=== PATIENT | female | born 1975 | race Caucasian/White ===

== ENCOUNTER 2022-03-02 17:51 | Inpatient (IN) ==
[2022-03-02 19:29] LABS: Basophils # 0.1 K/mcL (0.0-0.2); Basophils % 0.6 %; Eosinophils # 0.1 K/mcL (0.0-0.6); Eosinophils % 0.4 %; Hematocrit 28.7 % (35.3-44.9); Hemoglobin 8.9 g/dL (11.5-15.4); Immature Granulocytes % 1.7 % (0-4); Lymphocytes # 1.9 K/mcL (0.6-4.6); Mean Corpuscular Hemoglobin 28.3 pg (28.0-33.3); Mean Corpuscular Volume 91.1 fL (83.0-100.0); Mean Platelet Volume 10.1 fL (9.4-12.4); Monocytes # 0.6 K/mcL (0.0-1.3); Monocytes % 4.7 %; Neutrophils # 9.7 K/mcL (1.6-8.9); Nucleated Red Blood Cells 0.2 /100 WBC (0); Platelet Count 467 K/mcL (140-400); Red Blood Count 3.15 M/mcL (3.82-4.97); Red Cell Distribution Width 16.4 % (11.5-14.5); Segmented Neutrophils % 77.6 %; White Blood Count 12.4 K/mcL (4.3-11.1)
[2022-03-02 19:36] LABS: INR 1.2; Prothrombin Time 13.7 Seconds (9.4-12.1)
[2022-03-02 19:38] LABS: Activated Partial Thrombo Time 26.5 Seconds (26.0-36.0)
[2022-03-02 19:45] LABS: BUN/Creatinine Ratio 32 (6-26); Blood Urea Nitrogen 24 mg/dL (6-20); Calcium 8.1 mg/dL (8.6-10.3); Carbon Dioxide 28 mEq/L (23-29); Chloride 97 mEq/L (98-107); Glucose 200 mg/dL (70-105); Osmolality,Calculated 290 (280-300); Potassium 5.1 mEq/L (3.5-5.1); Sodium 135 mEq/L (136-145); eGFR For African Americans > 60 (> 60); eGFR For Non-African Americans > 60 (> 60)
[2022-03-02] MEDS ORDERED: SODIUM CHLORIDE/NAHCO3/KCL/PEG 4,000 ML SOLN.RECON PO ONE (22:00)
[2022-03-02] MEDS ORDERED: Naloxone 0.4 MG/ML INJ IVP PRN (22:10)
[2022-03-02] MEDS ORDERED: Melatonin 3 MG TABLET PO PRN (22:10)
[2022-03-02] MEDS ORDERED: Ondansetron ODT 4 MG TAB.RAPDIS SL PRN (22:10)
[2022-03-02] MEDS ORDERED: Acetaminophen 325 MG TABLET PO PRN (22:10)
[2022-03-02] MEDS ORDERED: *HR* HYDROcodone/Acet 5/325 mg TABLET PO PRN (22:10)
[2022-03-02] MEDS ORDERED: D5% in Water 1,000 ML IVC PRN (22:13)
[2022-03-02] MEDS ORDERED: *HR* Dextrose 50 % in Water (Syg) 50 ML SYRINGE IVP PRN (22:13)
[2022-03-02] MEDS ORDERED: Dextrose Gel 15 GM/37.5 ML TUBE PO PRN ×2 (22:13)
[2022-03-03] MEDS: Insulin LISPRO 300 UNITS/3 ML VIAL SUBQ SCH ×5 (00:10→20:04)
[2022-03-03 01:38] LABS: Basophils # 0.1 K/mcL (0.0-0.2); Basophils % 0.6 %; Eosinophils % 0.3 %; Hematocrit 27.5 % (35.3-44.9); Hemoglobin 8.3 g/dL (11.5-15.4); Immature Granulocytes % 1.7 % (0-4); Lymphocytes # 1.8 K/mcL (0.6-4.6); Lymphocytes % 11.4 %; Mean Corpuscular HGB Conc 30.2 g/dL (31.6-35.5); Mean Corpuscular Hemoglobin 27.7 pg (28.0-33.3); Mean Corpuscular Volume 91.7 fL (83.0-100.0); Mean Platelet Volume 9.6 fL (9.4-12.4); Monocytes # 0.9 K/mcL (0.0-1.3); Monocytes % 5.5 %; Neutrophils # 12.6 K/mcL (1.6-8.9); Platelet Count 448 K/mcL (140-400); Red Cell Distribution Width 16.5 % (11.5-14.5); Segmented Neutrophils % 80.5 %; White Blood Count 15.6 K/mcL (4.3-11.1)
[2022-03-03 01:57] LABS: BUN/Creatinine Ratio 32 (6-26); Blood Urea Nitrogen 28 mg/dL (6-20); Calcium 8.1 mg/dL (8.6-10.3); Carbon Dioxide 28 mEq/L (23-29); Chloride 96 mEq/L (98-107); Glucose 219 mg/dL (70-105); Magnesium 1.5 mg/dL (1.6-2.6); Osmolality,Calculated 290 (280-300); Phosphorous 4.4 mg/dL (2.7-4.5); Potassium 4.7 mEq/L (3.5-5.1); Sodium 134 mEq/L (136-145); eGFR For African Americans > 60 (> 60); eGFR For Non-African Americans > 60 (> 60)
[2022-03-03] MEDS: *HR* OxyCODONE Immed Rel 5 MG TABLET PO PRN ×2 (02:19→20:00)
[2022-03-03 06:23] LABS: Hematocrit 27.8 % (35.3-44.9); Hemoglobin 8.5 g/dL (11.5-15.4)
[2022-03-03] MEDS: Pantoprazole 40 MG VIAL IVP SCH ×2 (08:41→17:14)
[2022-03-03 11:27] LABS: Estimated Average Glucose 203 mg/dl; Hemoglobin A1C 8.7 %
[2022-03-03] MEDS: Piperacillin/Tazobactam 3.375 GM in 0.9 % Sodium Chloride Mini Bag 100 ML IVPB SCH ×2 (11:30→19:53)
[2022-03-03] MEDS: Vancomycin 2,000 MG/520 ML IV.SOLN IVPB SCH (13:09)
[2022-03-03 16:07] LABS: Amphetamine Screen,Urine Negative ng/mL (Cutoff=1000); Barbiturate Screen,Urine Negative ng/mL (Cutoff=200); Benzodiazepines Screen,Urine Negative ng/mL (Cutoff=200); Cannabinoid Screen,Urine Negative ng/mL (Cutoff = 50); Cocaine Screen,Urine Negative ng/mL (Cutoff= 300); Opiate Screen,Urine Negative ng/mL (Cutoff=300); Phencyclidine Screen,Urine Negative ng/mL (Cutoff=25)
[2022-03-03 16:20] LABS: Bacteria,Urine Few per hpf (None-Few); Bilirubin,Urine Negative (Negative); Blood,Urine Large (Negative); Clarity,Urine Ex.Turbid (Clear); Color,Urine Orange (Yellow); Glucose,Urine (UA) Normal (Normal); Hyaline Casts,Urine Many per lpf (None Seen); Ketones,Urine Negative (Negative); Leukocyte Esterase,Urine Large (Negative); Mucus,Urine Many per lpf (None-Few); Nitrite,Urine Negative (Negative); Protein,Urine 200 mg/dL (Neg-Trace); RBC,Urine 50-100 per hpf (0-3); Specific Gravity,Urine 1.027 (1.010-1.025); Squamous Epithelial Cell,Urine Moderate per hpf (None-Few); WBC,Urine TNTC per hpf (0-3)
[2022-03-04] MEDS: Vancomycin 2,000 MG/520 ML IV.SOLN IVPB SCH (00:40)
[2022-03-04 03:02] LABS: Basophils # 0.1 K/mcL (0.0-0.2); Basophils % 0.7 %; Eosinophils # 0.1 K/mcL (0.0-0.6); Eosinophils % 1.2 %; Hematocrit 24.8 % (35.3-44.9); Hemoglobin 7.6 g/dL (11.5-15.4); Immature Granulocytes % 2.5 % (0-4); Lymphocytes # 1.9 K/mcL (0.6-4.6); Lymphocytes % 17.6 %; Mean Corpuscular HGB Conc 30.6 g/dL (31.6-35.5); Mean Corpuscular Hemoglobin 27.8 pg (28.0-33.3); Mean Corpuscular Volume 90.8 fL (83.0-100.0); Mean Platelet Volume 9.8 fL (9.4-12.4); Monocytes # 0.7 K/mcL (0.0-1.3); Monocytes % 6.4 %; Neutrophils # 7.7 K/mcL (1.6-8.9); Platelet Count 422 K/mcL (140-400); Red Blood Count 2.73 M/mcL (3.82-4.97); Red Cell Distribution Width 16.8 % (11.5-14.5); Segmented Neutrophils % 71.6 %; White Blood Count 10.8 K/mcL (4.3-11.1)
[2022-03-04 03:21] LABS: BUN/Creatinine Ratio 33 (6-26); Blood Urea Nitrogen 33 mg/dL (6-20); Carbon Dioxide 30 mEq/L (23-29); Chloride 95 mEq/L (98-107); Glucose 185 mg/dL (70-105); Osmolality,Calculated 290 (280-300); Potassium 4.7 mEq/L (3.5-5.1); Sodium 134 mEq/L (136-145); eGFR For African Americans > 60 (> 60); eGFR For Non-African Americans 60 (> 60)
[2022-03-04 03:24] LABS: Bacteria,Urine Few per hpf (None-Few); Bilirubin,Urine Small (Negative); Blood,Urine Large (Negative); Clarity,Urine Turbid (Clear); Color,Urine Yellow (Yellow); Glucose,Urine (UA) Normal (Normal); Ketones,Urine Trace mg/dL (Negative); Leukocyte Esterase,Urine Large (Negative); Mucus,Urine Few per lpf (None-Few); Nitrite,Urine Negative (Negative); PH,Urine 5.5 pH Units (5.0-8.0); Protein,Urine 70 mg/dL (Neg-Trace); RBC,Urine 30-50 per hpf (0-3); Specific Gravity,Urine > 1.030 (1.010-1.025); Squamous Epithelial Cell,Urine Few per hpf (None-Few); WBC,Urine TNTC per hpf (0-3)
[2022-03-04] MEDS: Piperacillin/Tazobactam 3.375 GM in 0.9 % Sodium Chloride Mini Bag 100 ML IVPB SCH (04:00)
[2022-03-04] MEDS: Pantoprazole 40 MG VIAL IVP SCH ×2 (05:49→18:33)
[2022-03-04] MEDS: Insulin LISPRO 300 UNITS/3 ML VIAL SUBQ SCH ×4 (07:12→20:58)
[2022-03-04 11:56] LABS: Basophils # 0.1 K/mcL (0.0-0.2); Basophils % 1.2 %; Eosinophils # 0.2 K/mcL (0.0-0.6); Eosinophils % 2.2 %; Hemoglobin 7.5 g/dL (11.5-15.4); Immature Granulocytes % 2.7 % (0-4); Lymphocytes # 1.7 K/mcL (0.6-4.6); Lymphocytes % 20.1 %; Mean Corpuscular HGB Conc 31.3 g/dL (31.6-35.5); Mean Corpuscular Hemoglobin 28.6 pg (28.0-33.3); Mean Corpuscular Volume 91.6 fL (83.0-100.0); Mean Platelet Volume 9.6 fL (9.4-12.4); Monocytes # 0.6 K/mcL (0.0-1.3); Monocytes % 6.6 %; Neutrophils # 5.8 K/mcL (1.6-8.9); Nucleated Red Blood Cells 0.2 /100 WBC (0); Platelet Count 386 K/mcL (140-400); Red Blood Count 2.62 M/mcL (3.82-4.97); Segmented Neutrophils % 67.2 %; White Blood Count 8.6 K/mcL (4.3-11.1)
[2022-03-04] MEDS ORDERED: Lidocaine -MPF 4% 5 ML AMPUL ONE (12:39)
[2022-03-04] MEDS ORDERED: *HR* Succinylcholine 200 MG/10 ML VIAL IVP ONE (12:39)
[2022-03-04] MEDS ORDERED: Lidocaine -MPF 2% 2 ML VIAL ONE ×2 (12:39→12:52)
[2022-03-04] MEDS ORDERED: Albumin Human 5% 12.5 GM/250 ML IV.SOLN ONE (13:50)
[2022-03-04] MEDS ORDERED: EPHEDrine 50 MG/ML VIAL ONE (13:55)
[2022-03-04] MEDS: cefTRIAXone 1,000 MG in 0.9 % Sodium Chloride 10 ML IVP SCH (15:27)
[2022-03-04] MEDS: *HR* OxyCODONE Immed Rel 5 MG TABLET PO PRN (15:36)
[2022-03-05] MEDS: *HR* OxyCODONE Immed Rel 5 MG TABLET PO PRN ×2 (02:40→21:13)
[2022-03-05] MEDS: Pantoprazole 40 MG VIAL IVP SCH (05:41)
[2022-03-05] MEDS: Insulin LISPRO 300 UNITS/3 ML VIAL SUBQ SCH ×4 (09:04→18:26)
[2022-03-05 10:40] LABS: Hematocrit 22.2 % (35.3-44.9); Hemoglobin 7.1 g/dL (11.5-15.4)
[2022-03-05] MEDS: cefTRIAXone 1,000 MG in 0.9 % Sodium Chloride 10 ML IVP SCH (12:51)
[2022-03-05] MEDS ORDERED: Albuterol 2.5 MG/3 ML NEBULIZER IH PRN (14:00)
[2022-03-05] MEDS: Gabapentin 300 MG CAPSULE PO SCH ×2 (15:42→21:07)
[2022-03-05 19:40] LABS: Adenovirus F 40/41 PCR Not detected (Not detect); Astrovirus PCR Not detected (Not detect); C.difficile Toxin A/B Gene PCR Not detected (Not detect); Campylobacter by PCR Not detected (Not detect); Cryptosporidium by PCR Not detected (Not detect); Cyclospora cayetanensis PCR Not detected (Not detect); Entamoeba histolytica PCR Not detected (Not detect); Enteroaggregative E.coli(EAEC) Not detected (Not detect); Enteropathogenic E.coli(EPEC) Not detected (Not detect); Enterotoxigenic E.coli (ETEC) Not detected (Not detect); Giardia lamblia PCR Not detected (Not detect); Norovirus GI/GII PCR Not detected (Not detect); Plesiomonas shigelloides PCR Not detected (Not detect); Rotavirus A PCR Not detected (Not detect); Salmonella PCR Not detected (Not detect); Sapovirus PCR Not detected (Not detect); Shig/EnteroinvasiveE coli EIEC Not detected (Not detect); Shigalike tox-prod E coli STEC Not detected (Not detect); Vibrio PCR Not detected (Not detect); Vibrio cholerae PCR Not detected (Not detect); Yersinia enterocolitica PCR Not detected (Not detect)
[2022-03-05] MEDS: rOPINIRole 0.25 MG TABLET PO SCH (21:06)
[2022-03-06 03:16] LABS: Hematocrit 20.7 % (35.3-44.9); Hemoglobin 6.2 g/dL (11.5-15.4)
[2022-03-06 04:07] LABS: Folate 7.6 ng/mL (3.0-16.0)
[2022-03-06 04:09] LABS: Ferritin 127 ng/mL (10-120)
[2022-03-06 04:22] LABS: % Iron Saturation 20 % (15-50); Iron 35 mcg/dL (50-170); Transferrin 127 mg/dL (203-362)
[2022-03-06] MEDS ORDERED: 0.9 % Sodium Chloride 250 ML ONE ×2 (05:37→11:23)
[2022-03-06] MEDS: Gabapentin 300 MG CAPSULE PO SCH ×3 (08:01→21:42)
[2022-03-06] MEDS: Insulin LISPRO 300 UNITS/3 ML VIAL SUBQ SCH ×4 (08:01→21:39)
[2022-03-06 09:55] LABS: Hematocrit 21.5 % (35.3-44.9); Hemoglobin 6.5 g/dL (11.5-15.4)
[2022-03-06 10:42] LABS: Hematocrit 20.6 % (35.3-44.9); Hemoglobin 6.4 g/dL (11.5-15.4)
[2022-03-06] MEDS: cefTRIAXone 1,000 MG in 0.9 % Sodium Chloride 10 ML IVP SCH (12:12)
[2022-03-06 18:45] LABS: Hematocrit 23.9 % (35.3-44.9); Hemoglobin 7.5 g/dL (11.5-15.4)
[2022-03-06] MEDS: rOPINIRole 0.25 MG TABLET PO SCH (21:42)
[2022-03-07 06:54] LABS: Basophils # 0.1 K/mcL (0.0-0.2); Basophils % 0.6 %; Eosinophils # 0.4 K/mcL (0.0-0.6); Eosinophils % 5.1 %; Hematocrit 22.7 % (35.3-44.9); Lymphocytes # 1.6 K/mcL (0.6-4.6); Lymphocytes % 19.5 %; Mean Corpuscular HGB Conc 30.8 g/dL (31.6-35.5); Mean Corpuscular Hemoglobin 28.2 pg (28.0-33.3); Mean Corpuscular Volume 91.5 fL (83.0-100.0); Mean Platelet Volume 9.6 fL (9.4-12.4); Monocytes # 0.6 K/mcL (0.0-1.3); Monocytes % 7.1 %; Neutrophils # 5.3 K/mcL (1.6-8.9); Nucleated Red Blood Cells 0.2 /100 WBC (0); Platelet Count 290 K/mcL (140-400); Red Blood Count 2.48 M/mcL (3.82-4.97); Red Cell Distribution Width 17.9 % (11.5-14.5); Segmented Neutrophils % 62.7 %; White Blood Count 8.4 K/mcL (4.3-11.1)
[2022-03-07] MEDS: Insulin LISPRO 300 UNITS/3 ML VIAL SUBQ SCH ×3 (07:41→18:01)
[2022-03-07] MEDS ORDERED: 0.9 % Sodium Chloride 250 ML ONE (11:19)
[2022-03-07] MEDS: cefTRIAXone 1,000 MG in 0.9 % Sodium Chloride 10 ML IVP SCH (11:34)
[2022-03-07] MEDS: Gabapentin 300 MG CAPSULE PO SCH ×3 (11:34→20:16)
[2022-03-07 16:33] VITALS: BP 104/56; PULSE 90; TEMP 98.6; O2SAT 93
[2022-03-07 17:31] LABS: Basophils # 0.1 K/mcL (0.0-0.2); Basophils % 0.9 %; Eosinophils # 0.5 K/mcL (0.0-0.6); Eosinophils % 4.3 %; Hematocrit 30.1 % (35.3-44.9); Immature Granulocytes % 4.6 % (0-4); Lymphocytes % 17.6 %; Mean Corpuscular HGB Conc 32.2 g/dL (31.6-35.5); Mean Corpuscular Hemoglobin 28.3 pg (28.0-33.3); Mean Corpuscular Volume 87.8 fL (83.0-100.0); Mean Platelet Volume 10.2 fL (9.4-12.4); Monocytes # 0.9 K/mcL (0.0-1.3); Neutrophils # 7.3 K/mcL (1.6-8.9); Nucleated Red Blood Cells 0.3 /100 WBC (0); Platelet Count 302 K/mcL (140-400); Red Blood Count 3.43 M/mcL (3.82-4.97); Red Cell Distribution Width 17.8 % (11.5-14.5); Segmented Neutrophils % 64.6 %; White Blood Count 11.3 K/mcL (4.3-11.1)
[2022-03-07 17:33] LABS: Hemoglobin 9.7 g/dL (11.5-15.4)
[2022-03-07] MEDS: rOPINIRole 0.25 MG TABLET PO SCH (20:17)
== END 2022-03-07 20:47 | disposition home health service (06) | DRG 812 ==
LOC: 3ANU 17:51 → EMEROOARM 17:51 → SUATTDRO 22:09 → 3ANU 22:34
PROVIDERS: ADMIT Family Medicine; ATTEND Internal Medicine
PROC: ENDOEBX (2022-03-04 13:00)

== ENCOUNTER 2022-07-02 00:03 | Observation (INO) ==
[2022-07-02] MEDS ORDERED: *HR* Dextrose 50 % in Water (Syg) 50 ML SYRINGE IVP PRN ×2 (02:01→05:53)
[2022-07-02] MEDS ORDERED: Insulin Regular, Human 100 UNIT/ML IV ONE (02:01)
[2022-07-02 02:57] LABS: Basophils % 0.3 %; Eosinophils % 0.3 %; Hematocrit 35.5 % (35.3-44.9); Hemoglobin 11.1 g/dL (11.5-15.4); Immature Granulocytes % 0.9 % (0-4); Lymphocytes # 0.4 K/mcL (0.6-4.6); Lymphocytes % 3.1 %; Mean Corpuscular HGB Conc 31.3 g/dL (31.6-35.5); Mean Corpuscular Hemoglobin 28.4 pg (28.0-33.3); Mean Corpuscular Volume 90.8 fL (83.0-100.0); Mean Platelet Volume 11.9 fL (9.4-12.4); Monocytes # 0.5 K/mcL (0.0-1.3); Monocytes % 3.2 %; Neutrophils # 12.9 K/mcL (1.6-8.9); Platelet Count 217 K/mcL (140-400); Red Blood Count 3.91 M/mcL (3.82-4.97); Red Cell Distribution Width 13.1 % (11.5-14.5); Segmented Neutrophils % 92.2 %
[2022-07-02 03:08] LABS: Amphetamine Screen,Urine Negative ng/mL (Cutoff=1000); Barbiturate Screen,Urine Negative ng/mL (Cutoff=200); Benzodiazepines Screen,Urine Negative ng/mL (Cutoff=200); Cannabinoid Screen,Urine Negative ng/mL (Cutoff = 50); Cocaine Screen,Urine Negative ng/mL (Cutoff= 300); Opiate Screen,Urine Negative ng/mL (Cutoff=300); Phencyclidine Screen,Urine Negative ng/mL (Cutoff=25)
[2022-07-02] MEDS: 0.9 % Sodium Chloride 1,000 ML IVC SCH ×4 (03:10→20:04)
[2022-07-02 03:13] LABS: Alanine Aminotransferase 17 Units/L (7-52); Albumin 2.5 g/dL (3.5-5.7); Albumin/Globulin Ratio 0.5 (1.1-2.2); Alkaline Phosphatase 120 Units/L (34-104); Aspartate Amino Transferase 45 Units/L (13-39); BUN/Creatinine Ratio 14 (6-26); Bilirubin,Direct 0.3 mg/dL (0.0-0.2); Bilirubin,Indirect 0.5 mg/dL (0.0-1.0); Bilirubin,Total 0.8 mg/dL (0.3-1.0); Blood Urea Nitrogen 29 mg/dL (6-20); Calcium 8.5 mg/dL (8.6-10.3); Carbon Dioxide 27 mEq/L (23-29); Chloride 82 mEq/L (98-107); Ethanol < 10 mg/dL (Less than 10); Glucose 472 mg/dL (70-105); Lipase 12 Units/L (11-82); Magnesium 0.7 mg/dL (1.6-2.6); Osmolality,Calculated 281 (280-300); Potassium 3.5 mEq/L (3.5-5.1); Sodium 122 mEq/L (136-145); Total Protein 7.5 g/dL (6.4-8.9)
[2022-07-02 03:20] LABS: Bacteria,Urine Many per hpf (None-Few); Bilirubin,Urine Negative (Negative); Blood,Urine Moderate (Negative); Clarity,Urine Ex.Turbid (Clear); Color,Urine Dark-Yellow (Yellow); Glucose,Urine (UA) 500 mg/dL (Normal); Ketones,Urine Negative (Negative); Leukocyte Esterase,Urine Large (Negative); Nitrite,Urine Negative (Negative); Protein,Urine >=300 mg/dL (Neg-Trace); RBC,Urine 15-30 per hpf (0-3); Specific Gravity,Urine 1.024 (1.010-1.025); Urobilinogen,Urine Normal (Normal); WBC,Urine TNTC per hpf (0-3)
[2022-07-02] MEDS ORDERED: cefTRIAXone 1,000 MG in 0.9 % Sodium Chloride Mini Bag 100 ML IVPB ONE (04:42)
[2022-07-02] MEDS ORDERED: Naloxone 0.4 MG/ML INJ IVP PRN (05:25)
[2022-07-02] MEDS ORDERED: Melatonin 3 MG TABLET PO PRN (05:25)
[2022-07-02] MEDS ORDERED: cefTRIAXone 1,000 MG in Water for inj. (sterile) 10 ML IVP ONE (05:29)
[2022-07-02] MEDS ORDERED: Iopamidol - 370 500 ML MLS IVP ONE (05:45)
[2022-07-02] MEDS ORDERED: D5% in Water 1,000 ML IVC PRN (05:53)
[2022-07-02] MEDS ORDERED: Dextrose Gel 15 GM/37.5 ML TUBE PO PRN ×2 (05:53)
[2022-07-02] MEDS ORDERED: Acetaminophen 325 MG TABLET PO PRN (06:00)
[2022-07-02] MEDS ORDERED: 0.9 % Sodium Chloride 1,000 ML IVC SCH ×3 (06:00→13:36)
[2022-07-02 07:29] LABS: Influenza A PCR Negative (Negative); Influenza B PCR Negative (Negative); Resp. Syncytial Virus PCR Negative (Negative)
[2022-07-02 07:43] LABS: SARS-CoV-2 by PCR (In House) Negative (Negative)
[2022-07-02 08:15] LABS: Thyroid Stimulating Hormone 6.905 mcIU/mL (0.340-5.600)
[2022-07-02 08:22] LABS: Calcium 8.1 mg/dL (8.6-10.3); Potassium 4.1 mEq/L (3.5-5.1)
[2022-07-02] MEDS: Insulin LISPRO 300 UNITS/3 ML VIAL SUBQ SCH ×3 (08:43→16:30)
[2022-07-02 08:52] LABS: Uric Acid 7.8 mg/dL (2.3-7.6)
[2022-07-02] MEDS ORDERED: Insulin DETEMIR 100 UNIT/ML X5UNITS SUBQ SCH (09:15)
[2022-07-02 09:57] LABS: Estimated Average Glucose 240 mg/dl
[2022-07-02] MEDS: Ondansetron ODT 4 MG TAB.RAPDIS SL PRN ×2 (11:41→21:46)
[2022-07-02 12:29] LABS: Potassium,Urine 35.1 mEq/L; Sodium, Urine 42.5 mEq/L
[2022-07-02 12:34] LABS: Protein/Creatinine Ratio,Urine 1.43 mg/mg (0.00-0.20)
[2022-07-02] MEDS ORDERED: 0.9 % Sodium Chloride 1,000 ML IV ONE ×2 (13:34→16:08)
[2022-07-02] MEDS: Piperacillin/Tazobactam 3.375 GM in 0.9 % Sodium Chloride Mini Bag 100 ML IVPB SCH (16:16)
[2022-07-02] MEDS: Albumin Human 5% 12.5 GM/250 ML IV.SOLN IVC SCH ×2 (17:42→21:44)
[2022-07-02 20:08] LABS: Hematocrit 30.3 % (35.3-44.9); Hemoglobin 9.6 g/dL (11.5-15.4); Lymphocytes # 0.5 K/mcL (0.6-4.6); Mean Corpuscular HGB Conc 31.7 g/dL (31.6-35.5); Mean Corpuscular Hemoglobin 28.5 pg (28.0-33.3); Mean Corpuscular Volume 89.9 fL (83.0-100.0); Mean Platelet Volume 11.4 fL (9.4-12.4); Monocytes # 0.7 K/mcL (0.0-1.3); Platelet Count 167 K/mcL (140-400); Red Blood Count 3.37 M/mcL (3.82-4.97); Red Cell Distribution Width 12.9 % (11.5-14.5); White Blood Count 11.3 K/mcL (4.3-11.1)
[2022-07-02 20:36] LABS: Neutrophils # 8.8 K/mcL (1.6-8.9); Platelet Estimate Normal (Normal)
[2022-07-02] MEDS ORDERED: Insulin LISPRO 300 UNITS/3 ML VIAL SUBQ SCH (21:00)
[2022-07-03] MEDS: 0.9 % Sodium Chloride 1,000 ML IVC SCH ×3 (01:11→11:17)
[2022-07-03] MEDS: Piperacillin/Tazobactam 3.375 GM in 0.9 % Sodium Chloride Mini Bag 100 ML IVPB SCH ×4 (01:12→23:46)
[2022-07-03 01:37] LABS: Hematocrit 29.5 % (35.3-44.9); Hemoglobin 9.6 g/dL (11.5-15.4); Mean Corpuscular HGB Conc 32.5 g/dL (31.6-35.5); Mean Corpuscular Hemoglobin 29.2 pg (28.0-33.3); Mean Corpuscular Volume 89.7 fL (83.0-100.0); Mean Platelet Volume 11.4 fL (9.4-12.4); Platelet Count 149 K/mcL (140-400); Red Blood Count 3.29 M/mcL (3.82-4.97); Red Cell Distribution Width 13.1 % (11.5-14.5); White Blood Count 8.4 K/mcL (4.3-11.1)
[2022-07-03 02:00] LABS: Calcium 7.7 mg/dL (8.6-10.3); Magnesium 1.3 mg/dL (1.6-2.6); Phosphorous 2.9 mg/dL (2.7-4.5); Potassium 3.6 mEq/L (3.5-5.1)
[2022-07-03 06:33] LABS: Hepatitis B Surface Antigen Nonreactive (Nonreactive)
[2022-07-03 07:01] LABS: Hepatitis C Virus Antibody Nonreactive (Nonreactive)
[2022-07-03 07:02] LABS: Hepatitis B Core IgM Nonreactive (Nonreactive)
[2022-07-03 07:03] LABS: Hepatitis A Antibody IgM Nonreactive (Nonreactive)
[2022-07-03] MEDS: Insulin LISPRO 300 UNITS/3 ML VIAL SUBQ SCH ×6 (07:41→17:24)
[2022-07-03] MEDS ORDERED: Albuterol 2.5 MG/3 ML NEBULIZER IH PRN (07:47)
[2022-07-03] MEDS: Insulin DETEMIR 100 UNIT/ML X5UNITS SUBQ SCH ×2 (08:43→20:54)
[2022-07-03] MEDS ORDERED: cefTRIAXone 2,000 MG in 0.9 % Sodium Chloride 20 ML IVP SCH (09:00)
[2022-07-03] MEDS ORDERED: Insulin DETEMIR 100 UNIT/ML X5UNITS SUBQ SCH (09:00)
[2022-07-03] MEDS: Loratadine 10 MG TABLET PO SCH (09:29)
[2022-07-03] MEDS: Gabapentin 300 MG CAPSULE PO SCH ×3 (09:29→20:55)
[2022-07-03] MEDS ORDERED: Nystatin SUSP 5 ML UD.LIQ PO PRN (12:14)
[2022-07-03] MEDS: rOPINIRole 0.25 MG TABLET PO SCH (20:55)
[2022-07-03] MEDS: Magnesium Oxide 400 MG TABLET PO SCH (20:55)
[2022-07-04 03:44] LABS: Basophils # 0.1 K/mcL (0.0-0.2); Basophils % 0.4 %; Eosinophils # 0.5 K/mcL (0.0-0.6); Eosinophils % 4.7 %; Hemoglobin 9.4 g/dL (11.5-15.4); Immature Granulocytes % 2.2 % (0-4); Lymphocytes # 0.9 K/mcL (0.6-4.6); Lymphocytes % 8.2 %; Mean Corpuscular HGB Conc 31.3 g/dL (31.6-35.5); Mean Corpuscular Hemoglobin 28.3 pg (28.0-33.3); Mean Corpuscular Volume 90.4 fL (83.0-100.0); Mean Platelet Volume 12.1 fL (9.4-12.4); Monocytes # 0.7 K/mcL (0.0-1.3); Monocytes % 5.8 %; Platelet Count 144 K/mcL (140-400); Red Blood Count 3.32 M/mcL (3.82-4.97); Segmented Neutrophils % 78.7 %; White Blood Count 11.4 K/mcL (4.3-11.1)
[2022-07-04 04:03] LABS: Magnesium 1.5 mg/dL (1.6-2.6); Phosphorous 4.1 mg/dL (2.7-4.5); Potassium 3.5 mEq/L (3.5-5.1)
[2022-07-04 07:02] VITALS: BP 110/56; PULSE 78; TEMP 97.7; O2SAT 97
[2022-07-04] MEDS: Insulin LISPRO 300 UNITS/3 ML VIAL SUBQ SCH ×6 (08:00→21:08)
[2022-07-04] MEDS: Piperacillin/Tazobactam 3.375 GM in 0.9 % Sodium Chloride Mini Bag 100 ML IVPB SCH ×2 (08:00→16:38)
[2022-07-04] MEDS: Loratadine 10 MG TABLET PO SCH (08:01)
[2022-07-04] MEDS: Gabapentin 300 MG CAPSULE PO SCH ×3 (08:01→21:09)
[2022-07-04] MEDS: Magnesium Oxide 400 MG TABLET PO SCH ×2 (08:01→21:08)
[2022-07-04] MEDS: Insulin DETEMIR 100 UNIT/ML X5UNITS SUBQ SCH ×2 (08:02→21:15)
[2022-07-04] MEDS: rOPINIRole 0.25 MG TABLET PO SCH (21:09)
[2022-07-05 13:19] LABS: Urine Collection Volume RANDOM mL
[2022-07-06 23:35] LABS: Alpha 2 Globulin (PEP) 0.95 g/dL (0.48-1.05)
[2022-07-07 04:47] LABS: Immunoglobulin G 2260 mg/dL (768-1632); Immunoglobulin M 74 mg/dL (35-263)
[2022-07-07 04:48] LABS: IFE Reflexed IFE Done; Immunoglobulin A 668 mg/dL (68-408)
== END 2022-07-04 23:00 | disposition home health service (06) ==
LOC: 2NENU 00:03 → EMEROOARM 00:03 → SUATTDRO 05:55 → 2NENU 06:36
PROVIDERS: ADMIT Internal Medicine; ATTEND Internal Medicine